=== PATIENT | female | born 1980 | race Caucasian/White ===

== ENCOUNTER 2021-06-22 21:48 | Emergency (ER) | payer BC ==
[~2021-06-22] VITALS: Ht 170.2 cm; Wt 63.5 kg
[2021-06-22] MEDS ORDERED: MYFORTIC360 MG PO (22:02)
[2021-06-22] MEDS ORDERED: TACROLIMUS1 MG PO (22:02)
[2021-06-22] MEDS ORDERED: LEVO-T100 MCG PO (22:03)
[2021-06-22] MEDS ORDERED: CELEXA 20 MG TA20 MG PO (22:03)
[2021-06-22] MEDS ORDERED: RAYOS5 MG PO (22:03)
[2021-06-22] MEDS ORDERED: ASA81BEC PO (22:03)
[2021-06-22] MEDS ORDERED: OMEPRAZOLE 20 M20 M1 PO (22:03)
[2021-06-22] MEDS ORDERED: ALLOPURINOL 10100 M1 PO (22:04)
[2021-06-22] MEDS ORDERED: NIFEDIPINE20 MG PO (22:04)
[2021-06-22] MEDS ORDERED: CILOXAN5 ML OPHTHALMIC (22:51)
[2021-06-22 23:11] VITALS: BP 200/100
== END 2021-06-22 23:13 | disposition home or self-care (01) ==
LOC: M.ERS 21:48
DX: S00.212A Abrasion of left eyelid and periocular area, initial encounter (principal); H10.9 Unspecified conjunctivitis; I10 Essential (primary) hypertension; Z94.0 Kidney transplant status; Z94.83 Pancreas transplant status; Z79.82 Long term (current) use of aspirin; Z79.891 Long term (current) use of opiate analgesic; Z79.899 Other long term (current) drug therapy; Z88.8 Allergy status to other drugs, medicaments and biological substances; X58.XXXA Exposure to other specified factors, initial encounter; Y93.89 Activity, other specified; Y92.89 Other specified places as the place of occurrence of the external cause; Y99.8 Other external cause status